=== PATIENT | female | born 1965 | race Caucasian/White ===

== ENCOUNTER 2017-07-19 16:35 | Emergency (ER) | payer MEDICARE, MEDICAID ==
[~2017-07-19] VITALS: Ht 149.9 cm; Wt 80.9 kg
[~2017-07-19 16:35] MED LIST: CYCL-1 PO; DEXL60CA3 PO; DULO60CA45 PO; ERGO400C PO; ESTR0.5T28 PO; HYDR-565 PO; LORA1TAB PO; ZOLP10TA5 PO
[2017-07-19] MEDS ORDERED: LORazepam 2 mg/ml vial IM ONE (16:50)
[2017-07-19 17:38] VITALS: BP 165/85
[2017-07-24] MEDS ORDERED: CLON0.2T PO (11:25)
[2017-07-24] MEDS ORDERED: HYDR-3686 PO (11:25)
== END 2017-07-19 17:45 | disposition home or self-care (01) ==
LOC: ER 16:36
DX: F41.9 Anxiety disorder, unspecified (principal); G43.909 Migraine, unspecified, not intractable, without status migrainosus; G89.29 Other chronic pain; Z79.899 Other long term (current) drug therapy; Z90.3 Acquired absence of stomach [part of]
CPT/HCPCS: 96372; 99284; J2060

== ENCOUNTER 2017-07-20 13:30 | Emergency (ER) | payer MEDICARE, MEDICAID ==
[~2017-07-20] VITALS: Ht 149.9 cm; Wt 80.0 kg
[2017-07-20 13:41] VITALS: BP 8/9
[2017-07-24] MEDS ORDERED: HYDR-3686 PO (11:25)
[2017-07-24] MEDS ORDERED: CLON0.2T PO (11:25)
== END 2017-07-20 16:21 | disposition left against medical advice (07) ==
LOC: ER 13:31
DX: F41.9 Anxiety disorder, unspecified (principal); Z53.21 Procedure and treatment not carried out due to patient leaving prior to being seen by health care provider

== ENCOUNTER 2018-09-22 13:36 | Emergency (ER) | payer MEDICARE, MEDICAID ==
[~2018-09-22] VITALS: Ht 149.9 cm; Wt 98.0 kg
[~2018-09-22 13:36] MED LIST changes: +CLON0.2T PO; +HYDR-4353 PO; -HYDR-565 PO
[2018-09-22 15:00] VITALS: BP 133/69
== END 2018-09-22 15:18 | disposition home or self-care (01) ==
LOC: ER 13:36
DX: S93.492A Sprain of other ligament of left ankle, initial encounter (principal); M25.472 Effusion, left ankle; G43.909 Migraine, unspecified, not intractable, without status migrainosus; G89.29 Other chronic pain; Z90.3 Acquired absence of stomach [part of]; Z79.899 Other long term (current) drug therapy; W18.31XA Fall on same level due to stepping on an object, initial encounter; Y93.89 Activity, other specified; Y92.89 Other specified places as the place of occurrence of the external cause; Y99.8 Other external cause status
CPT/HCPCS: 29515; 73610; 99284

== ENCOUNTER 2018-10-04 09:15 | Outpatient (CLI) | payer MEDICARE, MEDICAID ==
[2018-10-04 09:16] VITALS: BP 157/92
== END 2018-10-04 09:51 | disposition home or self-care (01) ==
LOC: ORTHO 09:15
PROVIDERS: ATTEND Nurse Practitioner Family
DX: S93.412A Sprain of calcaneofibular ligament of left ankle, initial encounter (principal); M79.89 Other specified soft tissue disorders; G43.909 Migraine, unspecified, not intractable, without status migrainosus; Z79.899 Other long term (current) drug therapy; Z96.652 Presence of left artificial knee joint; Z90.710 Acquired absence of both cervix and uterus; W18.31XA Fall on same level due to stepping on an object, initial encounter; Y93.89 Activity, other specified; Y92.89 Other specified places as the place of occurrence of the external cause; Y99.8 Other external cause status
CPT/HCPCS: 99213

== ENCOUNTER 2019-04-24 15:39 | Emergency (ER) | payer MEDICARE, MEDICAID ==
[~2019-04-24] VITALS: Ht 147.3 cm; Wt 85.9 kg
[2019-04-24 15:55] VITALS: BP 146/85
[2019-04-24] MEDS ORDERED: ketorolac tromethamine 15mg/ml inj. IM ONE (17:15)
[2019-04-24] MEDS ORDERED: triamcinolone acetonide 40mg/ml inj IM ONE (17:15)
== END 2019-04-24 18:10 | disposition home or self-care (01) ==
LOC: ER 15:41
DX: M54.2 Cervicalgia (principal); M54.6 Pain in thoracic spine; G43.909 Migraine, unspecified, not intractable, without status migrainosus; Z88.5 Allergy status to narcotic agent; G89.29 Other chronic pain; Z88.8 Allergy status to other drugs, medicaments and biological substances; Z79.899 Other long term (current) drug therapy; Z98.890 Other specified postprocedural states
CPT/HCPCS: 96372; 99283; J1885; J3301